=== PATIENT | female | born 1935 | race Caucasian/White ===

== ENCOUNTER 2021-06-05 11:54 | Day surgery (SDC) | payer MEDICARE, SELFPAY ==
--- NOTE | 2021-06-01 13:24 | HO.ANESPROP2 ---
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) Xarelto for afib s/p TAVR 12/2020 [facility] Past Medical History Medical History (Updated 06/01/21 @ 11:11 by Mukesh Foley RN) Afib Breast cancer History of cardioversion History of transcatheter aortic valve replacement (TAVR) HTN (hypertension) Hyperlipidemia Hypothyroidism Neuropathy Osteoporosis Pacemaker Family History Family History Mother HTN (hypertension) Father Daughter Colon cancer Surgical History Surgical History History of lumpectomy Social History Social History Patient Tobacco Use Status: Former Tobacco user Tobacco use type: Cigarette Smoked in Last 30 Days: No Use of substances other than those prescribed or required for medical reasons: No Are you DNR?: No Advance Directives: No Advance Directives Information Provided: No Patient : No Meds Allergies Allergy/AdvReac Type Severity Reaction Status Date / Time erythromycin base Allergy Unknown Verified 06/05/21 12:02 Penicillins [PCN] Allergy Unknown Verified 06/05/21 12:02 simvastatin [From Zocor] Allergy Unknown Verified 06/05/21 12:02 tolmetin [From Tolectin] Allergy Unknown Verified 06/05/21 12:02 Home Medications Medication Instructions Recorded Confirmed Last Taken Type Xarelto 06/01/21 06/01/21 Unknown History aspirin 81 mg tablet,delayed 81 mg PO DAILY 06/01/21 06/01/21 Unknown History release cholecalciferol (vitamin D3) 25 25 mcg PO DAILY 06/01/21 06/01/21 Unknown History mcg (1,000 unit) capsule (Vitamin D3) duloxetine 20 mg capsule,delayed 20 mg PO BID 06/01/21 06/01/21 Unknown History release (Cymbalta) gemfibrozil 600 mg tablet 600 mg PO BID 06/01/21 06/01/21 Unknown History levothyroxine 50 mcg tablet 50 mcg PO DAILY 06/01/21 06/01/21 Unknown History (Levoxyl) lisinopril 10 mg tablet 10 mg PO DAILY 06/01/21 06/01/21 Unknown History pravastatin 40 mg tablet 40 mg PO DAILY 06/01/21 06/01/21 Unknown History sotalol 80 mg tablet 80 mg PO BID 06/01/21 06/01/21 Unknown History Exam Exam Date and Time: June 01, 2021 1324 Pertinent Lab Results Pertinent Lab Results: Labs 05/2021 WBC 8.2 Hgb 8.3 (L) Hct 28.7 (L) Plt 275 Na 135 K 5.0 Cl 99 Bicarb 23 BUN 19 Creat 0.8 Narrative Narrative: EKG 04/2021 Electronic ventricular pacemaker LAD RBBB Inferior infarct, age undetermined Possible anterolateral infarct, age undetermined Echo 04/2021 LV size is normal . LV wall thickness is mild to moderately increased. LV systolic function is vigorous. LVEF 65-70%. Abnormal septal motion consistent with RV pacing. Unable to assess diastolic function RV size and function appear grossly normal LA is moderately dilated. RA is dilated. There is normally functioning transcatheter aortic valve implantation in aortic position. There is mild to moderate mitral regurg Mild tricuspid valve regurg Normal CVP and PASP estimate Trace circumferential pericardial effusion. Assessment and Plan Assessment Anesthesia Assessment: Chart Reviewed Documented by User: Verna De La O MD 06/05/21 12:30 [facility] Past Medical History Medical History (Updated 06/01/21 @ 11:11 by Mukesh Foley RN) Afib Breast cancer History of cardioversion History of transcatheter aortic valve replacement (TAVR) HTN (hypertension) Hyperlipidemia Hypothyroidism Neuropathy Osteoporosis Pacemaker Functional capacity: independent ambulation Patient : No Family History Family History Mother HTN (hypertension) Father Daughter Colon cancer Family history of problems with anesthesia: No Surgical History Surgical History History of lumpectomy History of Problems with Anesthesia: No Social History Social History Patient Tobacco Use Status: Former Tobacco user Tobacco use type: Cigarette Smoked in Last 30 Days: No Use of substances other than those prescribed or required for medical reasons: No Are you DNR?: No Advance Directives: No Advance Directives Information Provided: No Patient : No Meds Allergies Allergy/AdvReac Type Severity Reaction Status Date / Time erythromycin base Allergy Unknown Verified 06/05/21 12:02 Penicillins [PCN] Allergy Unknown Verified 06/05/21 12:02 simvastatin [From Zocor] Allergy Unknown Verified 06/05/21 12:02 tolmetin [From Tolectin] Allergy Unknown Verified 06/05/21 12:02 Home Medications Medication Instructions Recorded Confirmed Last Taken Type Xarelto 06/01/21 06/01/21 Unknown History aspirin 81 mg tablet,delayed 81 mg PO DAILY 06/01/21 06/01/21 Unknown History release cholecalciferol (vitamin D3) 25 25 mcg PO DAILY 06/01/21 06/01/21 Unknown History mcg (1,000 unit) capsule (Vitamin D3) duloxetine 20 mg capsule,delayed 20 mg PO BID 06/01/21 06/01/21 Unknown History release (Cymbalta) gemfibrozil 600 mg tablet 600 mg PO BID 06/01/21 06/01/21 Unknown History levothyroxine 50 mcg tablet 50 mcg PO DAILY 06/01/21 06/01/21 Unknown History (Levoxyl) lisinopril 10 mg tablet 10 mg PO DAILY 06/01/21 06/01/21 Unknown History pravastatin 40 mg tablet 40 mg PO DAILY 06/01/21 06/01/21 Unknown History sotalol 80 mg tablet 80 mg PO BID 06/01/21 06/01/21 Unknown History Exam Airway Mallampati Class: II TM Dist: >3cm Neck ROM: Full Heart: Paced Lungs: CTA Assessment and Plan Final Anesthetic Review Family History of Problems with Anesthesia: No History of Problems with Anesthesia: No ASA Class: III Final Preanesthetic Review: No Changes in Pt Med Stat, Meds/Allgs Chart Reviewed, Consent Obtained/Reviewed and Anes Risks/Benef Reviewed Patient Risk: Intermediate Procedure Risk: Low Anesthetic Plan Anesthetic Plan: MAC: Disposition: Standard PACU
[2021-06-05 12:09] VITALS: BMI 21.4
[2021-06-05 12:20] VITALS: BP 146/40; PULSE 71; RESP 16; TEMP 36.9; O2SAT 100
[2021-06-05] MEDS: Lactated Ringers 1,000 ML 20 ML IVCONT (12:30)
--- NOTE | 2021-06-05 12:39 | P.HPSUR_ITS ---
Pre-Procedural Eval Section A Date of Service: 06/05/21 Section B Chief Complaint: anemia Details of Present Illness: see h&p Relevant Family History (Specify if Yes): No Relevant Social History: None Present Medications: see Short Stay Collaborative assessment Medical History: Significant History (see h&p) History of Previous Operations: Relevant previous surgery/procedure and date(s) (TAVR, see h&p) Allergies: Allergies Allergy/AdvReac Type Severity Reaction Status Date / Time erythromycin base Allergy Unknown Verified 06/05/21 12:02 Penicillins [PCN] Allergy Unknown Verified 06/05/21 12:02 simvastatin [From Zocor] Allergy Unknown Verified 06/05/21 12:02 tolmetin [From Tolectin] Allergy Unknown Verified 06/05/21 12:02 Review of Systems Sugical H&P ROS: Negative: Constitution, Cardiovascular, Respiratory, Neurologi lucia, Psychiatric, Hem-Onc, Allergic/Immunologic, Gastrointestinal, Genitourinary, Musculoskeletal, Integumentary, Endocrine and Eyes/Ears/Nose/Throat Exam Surgical H&P Exam: Normal: HEENT, Normal: Heart, Normal: Lungs, Normal: Extremities, Normal: Abdomen, Normal: Skin and Normal: Neurological Plan Diagnosis/Plan: Unchanged I have reviewed the history and physical and performed a pertinent physical examination on my patient. No changes have occurred unless specified.
--- NOTE | 2021-06-05 13:33 | PM.OP ---
Brief Operative Note Date of Service: 06/05/21 Pre-op diagnosis: DANNY, heme pos Post-op diagnosis: same (esophageal candidiasis, colon polyp,diverticulosis) Procedure: EGD, colon Surgeon: Sancho Ulloa Anesthesia: MAC Was an Fiscal Officer used for this Procedure?: No Estimated blood loss (mL): 5 Pathology: other (bxs duodenum, antrum, esophagus, polyp 60cm) Condition: stable Disposition: PACU
[2021-06-05 13:36] VITALS: BP 104/56; PULSE 60; RESP 18; TEMP 37.3; O2SAT 97
[2021-06-05 13:51] VITALS: BP 120/37; PULSE 60; RESP 18; O2SAT 100
--- NOTE | 2021-06-05 14:01 | HO.POSTANES ---
Post Anesthesia Evaluation Post Anesthesia Evaluation Vital Signs: Vital Signs Temp Pulse Resp BP Pulse Ox 06/05/21 13:51 60 18 120/37 L 100 06/05/21 13:36 99.2 F 60 18 104/56 L 97 06/05/21 12:20 98.5 F 71 16 146/40 H 100 Anesthesia: Monitored Mental Status: Awake Pain Control: Satisfactory Nausea/Vomiting: None Anesthesia-Related Issues: No Anes. Related Issues
[2021-06-05 14:05] VITALS: BP 110/39; PULSE 62; RESP 18; TEMP 37.2; O2SAT 99
--- NOTE | 2021-06-05 16:05 | OP_ITS ---
SURGEON: Sancho Ulloa MD INDICATIONS: Iron deficiency anemia and Hemoccult-positive stools. PREOPERATIVE DIAGNOSIS: POSTOPERATIVE DIAGNOSIS: PROCEDURE PERFORMED: 1. Upper endoscopy with biopsy. 2. Colonoscopy to the cecum with snare polypectomy. ESTIMATED BLOOD LOSS: COMPLICATIONS: ANESTHESIA: ASSISTANTS: SPECIMENS: MEDICATIONS: Monitored anesthesia care. DESCRIPTION OF PROCEDURE: History and physical were performed. The risks and benefits of the procedure were explained to the patient. An informed consent was obtained. The patient was placed in the left lateral decubitus position. The Olympus video gastroscope was introduced into the esophagus, stomach, and duodenum. Examination was performed. The scope was removed. She was repositioned for colonoscopy. Digital rectal exam was performed and was found to be normal. The Olympus pediatric video colonoscope was introduced into the rectum and advanced to the cecum without difficulty. The cecum was identified by transillumination, palpation, and identification of ileocecal valve. Examination was performed. The scope was removed and she tolerated both procedures well and was taken to recovery area in stable condition. FINDINGS: UPPER ENDOSCOPY: Esophagus: There were whitish plaques consistent with esophageal candidiasis present in the esophagus. Biopsies were obtained at 30 cm. There was no esophagitis. Stomach: The stomach showed no evidence of masses or ulcers. Antral biopsies were obtained to evaluate for H pylori. Duodenum: The bulb and second portion were normal. Random biopsies were obtained for the second portion to assess for any evidence of malabsorption. COLONOSCOPY: The terminal ileum was not examined. The visualized colonic mucosa was within normal limits without evidence of colitis, masses, AVMs, or ulcers. There was a single polyp at 60 cm measuring approximately 7-8 mm, which removed with a cold snare. There was extensive sigmoid diverticulosis with luminal narrowing and muscular hypertrophy. Retroflexed examination showed moderate-sized internal hemorrhoids. IMPRESSION: 1. Esophageal candidiasis. 2. Colon polyp. 3. Diverticulosis. RECOMMENDATION: 1. Follow up the biopsy results. 2. Treatment of esophageal candidiasis, pending results of biopsy results. 3. Restart oral anticoagulation in a.m. MD JAIDA Lynne/ARLYN / [id number]
== END 2021-06-05 14:41 | disposition home or self-care (01) ==
PROVIDERS: PCP Physician Assistant; Visit Provider Internal Medicine Gastroenterology
PROC: (CPT 45385; principal; 2021-06-05 12:00)
DX: D50.9 Iron deficiency anemia, unspecified (principal); R19.5 Other fecal abnormalities; Z86.010 Personal history of colon polyps; D12.4 Benign neoplasm of descending colon; K57.30 Diverticulosis of large intestine without perforation or abscess without bleeding; K64.8 Other hemorrhoids; B37.81 Candidal esophagitis; I48.91 Unspecified atrial fibrillation; I10 Essential (primary) hypertension; E03.9 Hypothyroidism, unspecified; E78.5 Hyperlipidemia, unspecified; G62.9 Polyneuropathy, unspecified; M81.0 Age-related osteoporosis without current pathological fracture; Z79.82 Long term (current) use of aspirin; Z79.899 Other long term (current) drug therapy; Z88.0 Allergy status to penicillin; Z88.8 Allergy status to other drugs, medicaments and biological substances; Z95.2 Presence of prosthetic heart valve; Z95.0 Presence of cardiac pacemaker; Z87.891 Personal history of nicotine dependence
CPT/HCPCS: 45385; 43239; 88305; 88312; 88342; J2370